=== PATIENT | female | born 1975 | race Caucasian/White ===

== ENCOUNTER 2020-01-09 11:23 | Emergency (ER) | payer BC ==
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
[2020-01-09 12:24] VITALS: BP 106/72; PULSE 55
== END 2020-01-09 12:22 | disposition home or self-care (01) ==
LOC: JD.ED 11:23
DX: S06.0X0A Concussion without loss of consciousness, initial encounter (principal); W20.8XXA Other cause of strike by thrown, projected or falling object, initial encounter
CPT/HCPCS: 99282; 99283